=== PATIENT | male | born 1985 | race African-American/Black ===

== ENCOUNTER 2017-11-08 05:51 | Emergency (ER) | payer SELFPAY ==
[~2017-11-08] VITALS: Ht 188 cm; Wt 108.9 kg
--- NOTE | 2017-11-08 06:09 | PHYS DOC ---
Past Medical History Past Medical History: No Pertinent History Smoking: Cigarettes Drug Use: Marijuana Adult General Chief Complaint Chief Complaint: CHEST PAIN HPI HPI Patient is a 32 year old male who presents with complaining of chest pain. Patient complaining of left-sided chest pain that started an hour while he was awake after using marijuana states he was using marijuana frequently without problem. Patient rated his pain as severe pain and denies history of previous chest pain. Patient states 'I don't know' to most of the questions and acting confused but after repeating the questions answers the question partially. Most of history was taking from his girlfriend. Patient does not have cardiac risk factor for smoking cigarettes and family history of coronary artery disease. Review of Systems Review of Systems Constitutional: Denies fever or chills [] Eyes: Denies change in visual acuity, redness, or eye pain [] HENT: Denies nasal congestion or sore throat [] Respiratory: Denies cough or shortness of breath [] Cardiovascular: No additional information not addressed in HPI [] GI: Denies abdominal pain, nausea, vomiting, bloody stools or diarrhea [] : Denies dysuria or hematuria [] Musculoskeletal: Denies back pain or joint pain [] Integument: Denies rash or skin lesions [] Neurologic: Denies headache, focal weakness or sensory changes [] Endocrine: Denies polyuria or polydipsia [] All other systems were reviewed and found to be within normal limits, except as documented in this note. Current Medications Current Medications Current Medications Medications (Trade) Dose Ordered Sig/Toni Start Time Stop Time Status Last Admin Dose Admin Lorazepam (Ativan) 1 mg 1X ONCE 11/08/17 06:15 11/08/17 06:17 DC 11/08/17 06:15 1 MG Allergies Allergies Allergies Coded Allergies Type Severity Reaction Last Updated Verified No Known Drug Allergies 11/08/17 No Physical Exam Physical Exam Constitutional: Well nourished, mild distress, non-toxic appearance, hyperventilating. [] HENT: Normocephalic, atraumatic, oropharynx moist, no oral exudates, nose normal. [] Eyes: PERRLA, EOMI, conjunctiva normal, no discharge. [] Neck: Normal range of motion, no tenderness, supple, no stridor. [] Cardiovascular: Tachycardia, no murmur [] Lungs & Thorax: Bilateral breath sounds clear to auscultation [] Abdomen: Bowel sounds normal, soft, no tenderness, no masses, no pulsatile masses. [] Skin: Warm, dry, no erythema, no rash. [] Back: No tenderness, no CVA tenderness. [] Extremities: No tenderness, no cyanosis, no clubbing, ROM intact, no edema. [] Neurologic: Alert and oriented X 3, normal motor function, normal sensory function, no focal deficits noted. [] Psychologic: Affect anxious Current Patient Data Vital Signs Vital Signs Date Time Temp Pulse Resp B/P (MAP) Pulse Ox O2 Delivery O2 Flow Rate FiO2 11/08/17 06:05 98.7 109 18 165/100 (121) 100 Room Air 98.7 Lab Values Laboratory Tests Test 11/08/17 06:03 11/08/17 07:00 White Blood Count 9.9 x10^3/uL (4.0-11.0) Red Blood Count 5.25 x10^6/uL (4.30-5.70) Hemoglobin 15.0 g/dL (13.0-17.5) Hematocrit 43.2 % (39.0-53.0) Mean Corpuscular Volume 82 fL (79-100) Mean Corpuscular Hemoglobin 29 pg (25-35) Mean Corpuscular Hemoglobin Concent 35 g/dL (31-37) Red Cell Distribution Width 14.0 % (11.5-14.5) Platelet Count 249 x10^3/uL (140-400) Neutrophils (%) (Auto) 77 % (31-73) H Lymphocytes (%) (Auto) 16 % (24-48) L Monocytes (%) (Auto) 7 % (0-9) Eosinophils (%) (Auto) 0 % (0-3) Basophils (%) (Auto) 1 % (0-3) Neutrophils # (Auto) 7.6 x10^3uL (1.8-7.7) Lymphocytes # (Auto) 1.6 x10^3/uL (1.0-4.8) Monocytes # (Auto) 0.7 x10^3/uL (0.0-1.1) Eosinophils # (Auto) 0.0 x10^3/uL (0.0-0.7) Basophils # (Auto) 0.1 x10^3/uL (0.0-0.2) Prothrombin Time 12.9 SEC (11.7-14.0) Prothrombin Time INR 1.0 (0.8-1.1) Sodium Level 137 mmol/L (136-145) Potassium Level 3.2 mmol/L (3.5-5.1) L Chloride Level 101 mmol/L (98-107) Carbon Dioxide Level 23 mmol/L (21-32) Anion Gap 13 (6-14) Blood Urea Nitrogen 11 mg/dL (8-26) Creatinine 1.1 mg/dL (0.7-1.3) Estimated GFR (Cockcroft-Gault) 93.3 BUN/Creatinine Ratio 10 (6-20) Glucose Level 145 mg/dL (70-99) H Calcium Level 10.4 mg/dL (8.5-10.1) H Magnesium Level 2.0 mg/dL (1.8-2.4) Total Bilirubin 1.2 mg/dL (0.2-1.0) H Aspartate Amino Transferase (AST) 13 U/L (15-37) L Alanine Aminotransferase (ALT) 23 U/L (16-63) Alkaline Phosphatase 85 U/L (46-116) Creatine Kinase 167 U/L (39-308) Creatine Kinase MB (Mass) < 0.5 ng/mL (0.0-3.6) Creatine Kinase MB Relative Index % (0-4) Troponin I Quantitative < 0.017 ng/mL (0.000-0.055) [id number]-Type Natriuretic Peptide 19 pg/mL (0-124) Total Protein 9.0 g/dL (6.4-8.2) H Albumin 4.8 g/dL (3.4-5.0) Albumin/Globulin Ratio 1.1 (1.0-1.7) Lipase 93 U/L (73-393) Urine Opiates Screen Neg (NEG) Urine Methadone Screen Neg (NEG) Urine Barbiturates Neg (NEG) Urine Phencyclidine Screen Neg (NEG) Urine Amphetamine/Methamphetamine Pos (NEG) Urine Benzodiazepines Screen Neg (NEG) Urine Cocaine Screen Neg (NEG) Urine Cannabinoids Screen Pos (NEG) Urine Ethyl Alcohol Neg (NEG) Laboratory Tests 11/08/17 06:03 Laboratory Tests 11/08/17 06:03 EKG EKG EKG interpreted by me. EKG at 0 558 showed sinus tachycardia at rate of 102, left atrial abnormality, no acute ST and T-wave abnormalities[] Radiology/Procedures Radiology/Procedures Chest x-ray interpreted by me and did not show acute finding.[] Course & Med Decision Making Course & Med Decision Making Pertinent Labs and Imaging studies reviewed. (See chart for details) Evaluation of patient in ER showed 32-year-old male patient with complaining of chest pain. Patient had anxiety and hyperventilation at arrival to ER that resolved with treatment and denied chest pain. Patient had blood pressure of 160 over 90s at arrival to ER that gradually decreased to 150s over 80s. Patient does not have history of hypertension but had family history of hypertension and instructed to record his blood pressure and follow up with his primary care physician. Patient had positive urine drug screen for methamphetamine and marijuana and instructed to quit using drugs. Dragon Disclaimer Dragon Disclaimer This electronic medical record was generated, in whole or in part, using a voice recognition dictation system. Departure Departure Impression: Primary Impression: Panic attack Additional Impressions: Non-cardiac chest pain Tobacco abuse Tobacco abuse counseling Elevated systolic blood pressure reading without diagnosis of hypertension Amphetamine abuse Marijuana abuse Hypokalemia Disposition: 01 HOME, SELF-CARE (@0712) Condition: IMPROVED Patient Instructions: Anxiety and Panic Attacks, Hypokalemia, Marijuana Abuse- Brief, Smoking Cessation, Tips For Success Additional Instructions: Drink plenty of liquids Follow-up with your primary care physician in 3-5 days Return to ER if not getting better Scripts Hydroxyzine Hcl (HYDROXYZINE HCL) 25 Mg Tablet 1 TAB PO QHS, #14 TAB Prov: MIKEY JOLLEY MD 11/08/17 Problem Qualifiers MIKEY JOLLEY MD Nov 08, 2017 06:09
[2017-11-08 06:22] LABS: CALCIUM 10.4 mg/dL (8.5-10.1); CREATININE 1.1 mg/dL (0.7-1.3); GFR 93.3; POTASSIUM 3.2 mmol/L (3.5-5.1)
[2017-11-08 06:23] LABS: BASO # 0.1 x10^3/uL (0.0-0.2); BASO % 1 % (0-3); EOS % 0 % (0-3); HEMATOCRIT 43.2 % (39.0-53.0); LYMPH # 1.6 x10^3/uL (1.0-4.8); LYMPH % 16 % (24-48); MEAN CORPUSCULAR HEMOGLOBIN 29 pg (25-35); MEAN CORPUSCULAR HGB CONC 35 g/dL (31-37); MEAN CORPUSCULAR VOLUME 82 fL (79-100); MONO # 0.7 x10^3/uL (0.0-1.1); MONO % 7 % (0-9); NEUT # 7.6 x10^3uL (1.8-7.7); NEUT % 77 % (31-73); PLATELET COUNT 249 x10^3/uL (140-400); RED BLOOD COUNT 5.25 x10^6/uL (4.30-5.70); WHITE BLOOD COUNT 9.9 x10^3/uL (4.0-11.0)
[2017-11-08 06:29] LABS: ALBUMIN 4.8 g/dL (3.4-5.0); ALBUMIN/GLOBULIN RATIO 1.1 (1.0-1.7); TOTAL BILIRUBIN 1.2 mg/dL (0.2-1.0)
[2017-11-08 06:34] LABS: PROTHROMBIN TIME PATIENT 12.9 SEC (11.7-14.0)
[2017-11-08 06:39] LABS: CREATINE KINASE 167 U/L (39-308)
--- NOTE | 2017-11-08 06:56 | EKG ---
[facility] [address] [place] [address] Test Date: 2017-11-08 Test Time: 05:56:52 Pat Name: CHAD DUMONT Department: Room: Gender: M Business Management Manager: : 1985 Requested By: MIKEY JOLLEY Order Number: [id number] Reading MD: Jose Martinez MD Measurements Intervals [place] Rate: 102 P: 48 ND: 140 QRS: 65 QRSD: 100 T: 24 QT: 346 QTc: 455 Interpretive Statements SINUS TACHYCARDIA Electronically Signed On 11-08-2017 7:24:23 CDT by Jose Martinez MD
[2017-11-08] MEDS ORDERED: HYDR25TA PO ×2 (07:14→07:18)
[2017-11-08 07:15] VITALS: BP 150/87
[2017-11-08 07:17] LABS: BARBITURATES NEG (NEG); BENZODIAZEPINES NEG (NEG); CANNABINOIDS POS (NEG); COCAINE NEG (NEG); METHADONE NEG (NEG); OPIATES NEG (NEG); PHENCYCLIDINE NEG (NEG)
[2017-11-08 07:24] LABS: AMPHETAMINE/METHAMPHETAMINE POS (NEG)
--- NOTE | 2017-11-08 07:37 | RAD ---
Portable chest, 11/08/2017: HISTORY: Chest pain The heart size is normal. The lungs are clear. There is no evidence of pleural fluid. IMPRESSION: No acute cardiopulmonary abnormality is detected. Electronically signed by: Sherif Salazar MD (11/08/2017 7:34 AM) [facility]
== END 2017-11-08 07:25 | disposition home or self-care (01) ==
LOC: ER 05:51
DX: R07.89 Other chest pain (principal); F12.10 Cannabis abuse, uncomplicated; F15.10 Other stimulant abuse, uncomplicated; E87.6 Hypokalemia; R03.0 Elevated blood-pressure reading, without diagnosis of hypertension; F41.0 Panic disorder [episodic paroxysmal anxiety]; Z72.0 Tobacco use; Z71.6 Tobacco abuse counseling
CPT/HCPCS: 36415; 71045; 80053; 80307; 82553; 83690; 83735; 83880; 84484; 85025; 85610; 93005; 96374; 99285; J2060; G0479